=== PATIENT | female | born 1960 | race African-American/Black ===

== ENCOUNTER 2019-06-08 10:16 | Emergency (ER) | payer MEDICARE, MEDICAID ==
[~2019-06-08] VITALS: Ht 165.1 cm; Wt 49.9 kg
[2019-06-08 10:16] VITALS: BP 95/57
== END 2019-06-08 11:18 | disposition left against medical advice (07) ==
LOC: ER 10:16 → EDBD 10:16 → ER 11:18
DX: R41.82 Altered mental status, unspecified (principal); Z53.21 Procedure and treatment not carried out due to patient leaving prior to being seen by health care provider